=== PATIENT | female | born 2000 | race Caucasian/White ===

== ENCOUNTER 2024-07-08 20:34 | Emergency (ER) | payer MEDICAID, SELFPAY ==
[2024-07-08 20:34] VITALS: BP 116/78; PULSE 95; RESP 16; TEMP 36.3; O2SAT 99; BMI 30.7
--- NOTE | 2024-07-08 21:14 | EDS_ITS ---
HPI History of Present Illness Chief Complaint: Chest Pain [facility] Medical History (Updated 07/09/24 @ 00:37 by Karoline Dumont) (spontaneous vaginal delivery) Normal EEG Home Medications ?Medication ?Instructions ?Recorded ?Last Taken ?Type NK 07/08/24 Unknown History Allergy/AdvReac Type Severity Reaction Status Date / Time No Known Allergies Allergy Verified 07/08/24 20:37 Social History (Updated 07/08/24 @ 21:32 by Iva Whittaker) household members: spouse and children housing: house Smoking Status: Never smoker EXAM Physical Exam Const Vital Signs: 07/08/24 20:34 07/08/24 21:12 07/08/24 21:32 Temperature 97.3 F L Temperature Source Temporal Pulse Rate 95 Respiratory Rate 16 Respiratory Effort Normal Non-Labored Blood Pressure 116/78 Blood Pressure Mean 90 Pulse Ox 99 99 Oxygen Delivery Method Room Air Room Air 07/08/24 21:34 07/08/24 22:00 07/08/24 23:00 Temperature Temperature Source Pulse Rate 86 80 85 Respiratory Rate 20 H 21 H 18 Respiratory Effort Blood Pressure 117/78 121/77 H 109/71 Blood Pressure Mean 91 91 83 Pulse Ox 98 98 Oxygen Delivery Method Room Air 07/09/24 00:00 07/09/24 00:35 Temperature 97.0 F L Temperature Source Pulse Rate 73 84 Respiratory Rate 16 18 Respiratory Effort Blood Pressure 113/85 H 123/89 H Blood Pressure Mean 94 100 Pulse Ox 95 99 Oxygen Delivery Method Room Air MDM MDM MDM Narrative Medical decision making narrative: HISTORY OF PRESENT ILLNESS: 23-year-old female presents with sharp stabbing chest pain that started around 1 PM. She further states pain was sharp, left-sided, lasted 10 minutes. Nonexertional she had the symptoms intermittently for several years. She has not been worked up for The patient denies recent surgery in the last 4 weeks or immobilization in the last 3 days, denies previous diagnosis of DVT or PE, hemoptysis, unilateral leg swelling or malignancy with treatment the last 6 months or palliative. No estrogen use noted. Patient denies sudden onset of pain, no tearing sensation, no migratory symptoms, no new numbness, weakness or loss of sensation. Patient denies family history or personal history of Connective tissue disorders (Marfan's Syndrome, Augusto Danlos etc) REVIEW OF SYSTEMS: Pertinent positives: Chest pain Pertinent negatives: , focal weakness, cough, fever, leg swelling, syncope, bleeding diathesis PHYSICAL EXAM: Nursing triage notes reviewed, Vital signs reviewed Constitutional: please see mdm HENT: MMM Eyes: Pupils equal round and reactive to light, Extraocular muscles intact Neck: No stridor, no JVD, full neck ROM Lungs: Clear to auscultation, No wheezing or rales. No increased work of breathing, no conversational dyspnea, no accessory muscle use, no nasal flaring. No respiratory distress noted Heart: Regular rate and rhythm, No murmurs, No rubs and No gallops, 2+ distal pulses (radial, femoral, posterior tibial) in all extremities Abdomen: Soft, there is no tenderness, rigidity, rebound or guarding, no obvious peritoneal signs, no palpable pulsatile abdominal masses, no auscultated abdominal bruit : No CVAT Extremities: No edema Neuro: No new focal neurological deficits, cranial nerves II through XII intact, 5/5 strength in all present extremities. Intact sensation to light touch in all present extremities, 2+ reflexes bilateral patella tendons. Skin: No rash or lesions noted MEDICAL DECISION MAKING: Chief Complaint: Chest pain External records reviewed: Reviewed prior cardiovascular testing none to report Factors affecting care: none Social determinants of health: none History obtained from others: Consults: none [facility] Narrative: Patient was initially hemodynamically stable, afebrile and nontoxic appearing. No focal cardiopulmonary abnormalities. No pulse deficits or stigmata of VTE noted on exam. I considered PE and aortic dissection all these diagnoses are less likely given patient's lack of historical risk factors and clinical exam findings to suggest VTE or dissection I considered the following differential diagnosis: Arrhythmia, pericarditis, pneumonia, PE, aortic dissection, ACS, anemia ALL IMAGES (IF OBTAINED) HAVE BEEN PERSONALLY REVIEWED AND INTERPRETED BY MYSELF. I have personally reviewed the patient's chest x-ray. Chest x-ray is unrema rkable for pulmonary edema, pneumothorax, pneumonia or focal cardiopulmonary abnormality. EKG with normal sinus rhythm, normal axis, normal intervals, no ST or T wave changes to suggest ischemia. No evidence of WPW, Brugada, ARVD. CBC without leukocytosis, severe anemia, no thrombocytopenia. BMP without evidence of significant electrolyte abnormalities, no anion gap, no acute kidney injury. High-sensitivity troponin is negative, no evidence of myocardial ischemiax2 I completed a HEART Score to screen for Major Adverse Cardiac Event (MACE) in this patient. The evidence indicates that the patient is very low risk for MACE and this is consistent with my clinical intuition. The risk of further workup or hospitalization for MACE is likely higher than the risk of the patient having a MACE. It is, therefore, in the patient?s best interest not to do additional emergent testing or to be hospitalized for MACE at this time. Shared Decision-Making No hospitalization indicated I have discussed with the patient my clinical impression and the result of the HEART Score to screen for MACE, as well as the risks of further testing and hospitalization. The HEART Score shows that the risk for MACE is less than 1%. Although the risk of MACE has not been completely eliminated, the risks of further testing or hospitalization for MACE likely exceed any potential benefit, and the patient agrees with not pursuing further emergent evaluation or hospitalization for MACE at this time. The patient and/or family, caregivers express understanding. The patient and/or family, caregivers agrees with the plan. Shared decision making: I will have a discussion with the patient and or visitors regarding risk/benefits of further testing or admission. They will be made aware of of the risk/benefits inherent in this decision they will be given the opportunity to voice understanding. Total critical care time today provided was at least 0 [] minutes. This excludes separately billable procedures. Critical care time (if documented) is secondary to the patient having high probability of clinically significant/life threatening deterioration in the patient's condition which required my urgent intervention. Impression: 1. Chest pain Dispo: Discharge This note was generated with [employer] dictation software. It may contain incorrect words, spelling, and punctuation that were not noted in review of the chart prior to signing. Lab Data Labs: Laboratory Results - last 24 hr 07/08/24 07/08/24 21:29 23:49 WBC 8.5 RBC 4.88 Hgb 12.7 Hct 38.2 MCV 78.3 L MCH 26.0 L MCHC 33.2 RDW Std Deviation 34.6 L RDW Coeff of Lamar 12.2 Plt Count 252 MPV 8.3 Immature Gran % (Auto) 0.200 Neut % (Auto) 47.6 Lymph % (Auto) 38.6 Liberty % (Auto) 8.5 Eos % (Auto) 4.7 Baso % (Auto) 0.4 Absolute Neuts (auto) 4.1 Absolute Lymphs (auto) 3.30 Nucleated RBC % 0 Sodium 142 Potassium 3.8 Chloride 107 Carbon Dioxide 28.0 Anion Gap 6 BUN 15 Creatinine 0.72 Estim Creat Clear Calc 118.13 Est GFR (MDRD) Af Amer 130 Est GFR (MDRD) Non-Af 108 BUN/Creatinine Ratio 20.8 H Glucose 103 Calcium 9.5 Troponin I High Sens < 3 L < 3 L Radiography Diagnostic Testing: Clinical Impression(s) from Imaging Studies Chest X-Ray 07/08/24 21:22 IMPRESSION: No radiographic evidence of acute cardiopulmonary disease. Electronically Signed: Nawaf Maynard DO at 21:38 EST Reading Location ID and State: [facility] / [place] Tel [phone], Service support , Discharge Plan Triage Chief Complaint: Chest Pain ED Provider: Ronny Veloz Dx/Rx/DC Orders Instructions: Chest Pain [facility] Prescriptions: No Action NK Primary Care Provider: Care Physician,No Primary Referrals: Zohaib Molina MD [Med Staff - Active Staff] - Activity Restrictions/Additional Instructions: Thank you for trusting us with your care today! Because your chest pain remains unclear. Your labs images today were reassuring that your symptoms are not ass associate with anything life-threatening Please take Tylenol (2 pills, 650 mg), ibuprofen (2 pills, 400 mg) every 6 hours as needed for pain and fever control. Please return to the emergency department if your symptoms change or worsen. Please follow with your primary care physician for further outpatient evaluation and management. Print Language: Arabic Disposition Disposition: Home, Self Care Discharge Date/Time: 07/09/24 00:38
--- NOTE | 2024-07-08 21:15 | EKG12_ITS ---
Test Reason : CP Blood Pressure : */* mmHG Vent. Rate : 84 BPM Atrial Rate : 84 BPM P-R Int : 136 ms QRS Dur : 82 ms QT Int : 358 ms P-R-T Axes : 21 68 62 degrees QTcB Int : 423 ms Normal sinus rhythm Normal ECG Confirmed by STEPHANIE TODD, ALAINA ([id number]), society editor MIKE WESTON ([id number]) on 07/09/2024 8:26:13 AM Referred By: NIELS Confirmed By: ALAINA BROWN MD
--- NOTE | 2024-07-08 21:22 | RAD_ITS ---
INDICATION: chest pain EXAMINATION/TECHNIQUE: X-RAY - XR Chest 1 View COMPARISON: FINDINGS: LINES/DEVICES: None. LUNGS: No consolidation, edema or effusion. No pneumothorax. MEDIASTINUM AND CARDIOVASCULAR STRUCTURES: Cardiac silhouette not enlarged. Central airways and mediastinal contour are unremarkable. BONES AND SOFT TISSUES: Unremarkable. RAD/Chest 1 View (Portable) IMPRESSION: No radiographic evidence of acute cardiopulmonary disease. Electronically Signed: Nawaf Maynard DO at 21:38 EST Reading Location ID and State: [facility] / [place] Tel [phone], Service support ,
[2024-07-08 21:32] VITALS: O2SAT 99
[2024-07-08 21:34] VITALS: BP 117/78; PULSE 86; RESP 20; O2SAT 98
[2024-07-08 21:35] LABS: Absolute Neutrophil Count 4.1 X10^3/uL (2.0-7.7); Basophil# 0.03 X10^3/uL; Basophil% 0.4 % (0-1); Eosinophils% 4.7 % (0-5); Hematocrit 38.2 % (37-47); Hemoglobin 12.7 g/dL (12.0-15.0); Lymphocyte % 38.6 % (19-41); Mean Corp Hgb Conc 33.2 g/dL (32-36); Mean Corpuscular Volume 78.3 fL (81-99); Mean Platelet Vol. 8.3 fl (6.2-12.0); Monocyte# 0.73 X10^3/uL; Monocyte% 8.5 % (0-10); NRBC Flagged by Analyzer 0 % (0-5); Neutrophil # 4.06 X10^3/uL (2.7-7.7); Neutrophil % 47.6 % (47-70); Platelet Count 252 K/mm3 (150-450); RBC Distribution Width CV 12.2 % (11.6-14.6); RBC Distribution Width SD 34.6 fl (35.1-43.9); Red Blood Count 4.88 M/mm3 (4.2-5.4); White Blood Count 8.5 K/mm3 (4.4-11.0)
[2024-07-08 21:53] LABS: Anion Gap 6 (5-15); BUN 15 mg/dL (7-18); BUN/Creat Ratio 20.8 RATIO (10-20); Calcium,Total 9.5 mg/dL (8.5-10.1); Chloride 107 mmol/L (98-107); Creatinine, Serum 0.72 mg/dL (0.55-1.02); EST Glomerular Filtration Rate 108 mL/min (>60); Est Glom Filt Rate - Afr Amer 130 mL/min (>60); Estimated Creatinine Clearance 118.13 ml/min; Glucose 103 mg/dL (74-106); Potassium 3.8 mmol/L (3.5-5.1); Sodium Level 142 mmol/L (136-145); Troponin-I HS (w/2H Reflex) < 3 pg/mL (3.0-54.0)
[2024-07-08 22:00] VITALS: BP 121/77; PULSE 80; RESP 21; O2SAT 98
[2024-07-08 23:00] VITALS: BP 109/71; PULSE 85; RESP 18
[2024-07-08 23:32] LABS: Reflex Troponin-HS? (from REC) Y
[2024-07-09] VITALS: BP 113/85; PULSE 73; RESP 16; O2SAT 95
[2024-07-09 00:20] LABS: Troponin-I HS < 3 pg/mL (3.0-54.0)
[2024-07-09 00:35] VITALS: BP 123/89; PULSE 84; RESP 18; TEMP 36.1; O2SAT 99
== END 2024-07-09 00:38 | disposition home or self-care (01) ==
PROVIDERS: Emergency Provider Emergency Medicine; Visit Provider Emergency Medicine
DX: R07.9 Chest pain, unspecified (principal)
CPT/HCPCS: 71045; 80048; 84484; 85025; 93005; 99284; A4216

== ENCOUNTER → 2025-05-04 | Outpatient (CLI) | payer MEDICAID, SELFPAY ==
[2025-05-04 12:25] LABS: Hematocrit 35.3 % (37-47); Hemoglobin 12.3 g/dL (12.0-15.0); Immature Granulocytes Count 0.090 X10^3/uL (0.0-0.0); Mean Corp Hgb Conc 34.8 g/dL (32-36); Mean Corpuscular Volume 85.5 fL (81-99); Mean Platelet Vol. 8.6 fl (6.2-12.0); NRBC Flagged by Analyzer 0 % (0-5); Platelet Count 222 K/mm3 (150-450); RBC Distribution Width CV 13.2 % (11.6-14.6); RBC Distribution Width SD 40.7 fl (35.1-43.9); Red Blood Count 4.13 M/mm3 (4.2-5.4); White Blood Count 11.7 K/mm3 (4.4-11.0)
[2025-05-04 12:28] LABS: Color, Urine Yellow (Yellow); Glucose, Dipstick Normal (Normal); Ketone-Dipstick Negative (Negative); Leukocyte Esterase-Dipstick 25 /ul (Negative); Nitrite-Dipstick Negative (Negative); Occult Blood-Urine 10 /ul (Negative); Protein-Dipstick 15 mg/dl (Negative); Specific Gravity, Urine 1.025 (1.002-1.030); Urine Bilirubin Dipstick Negative (Negative)
[2025-05-04 12:59] LABS: AST(SGOT) 11 U/L (<=31); Alanine Aminotransfer ALT/SGPT 5 U/L (<=34); Albumin, Serum 3.6 g/dL (3.5-5.0); Alkaline Phosphatase 62 U/L (35-104); Anion Gap 11 (5-15); BUN 9 mg/dL (4-19); BUN/Creat Ratio 20.1 RATIO (10-20); Calcium,Total 9.1 mg/dL (7.6-11.0); Carbon Dioxide 21.0 mmol/L (21.0-32.0); Chloride 106 mmol/L (98-108); Ferritin 12 ng/mL (22-378); Globulin 2.6 g/dL (2.2-4.2); Glucose 85 mg/dL (70-99); Iron 97 ug/dL (50-170); Iron Binding Capacity,Total 380 ug/dL (250-450); Iron Binding Capacity,Unsat 283 ug/dL (228-428); Potassium 3.7 mmol/L (3.3-5.1); T4 Total, Thyroxin 8.7 ug/dL (4.8-13.9)
== END | disposition home or self-care (01) ==
LOC: VSLAB 10:55
PROVIDERS: Referring Provider Family Medicine; Visit Provider Family Medicine
DX: R55 Syncope and collapse (principal)
CPT/HCPCS: 36415; 80053; 81002; 82728; 83540; 83550; 84436; 84443; 85025; 87086; 87088